=== PATIENT | female | born 1980 | race African-American/Black ===

== ENCOUNTER → 2020-05-15 | Outpatient (REF) | payer SELFPAY | LOC: M LAB REF 19:25 | PROVIDERS: ATTEND Physician Assistant | DX: R36.0 Urethral discharge without blood (principal) ==

== ENCOUNTER 2021-02-27 18:52 | Emergency (ER) | payer BC, MEDICAID ==
[~2021-02-27] VITALS: Ht 157.5 cm; Wt 72.3 kg
[2021-02-27] MEDS ORDERED: IRON65TA2 PO (19:10)
[2021-02-27] MEDS ORDERED: FLAG500T PO (23:02)
[2021-02-27 23:04] VITALS: BP 124/73
[2021-02-28 00:01] LABS: GC DNA AMPLIFICATION NEGATIVE (NEGATIVE)
== END 2021-02-27 23:09 | disposition home or self-care (01) ==
LOC: M ED 18:52
DX: N60.19 Diffuse cystic mastopathy of unspecified breast (principal); N76.0 Acute vaginitis; D50.9 Iron deficiency anemia, unspecified; Z88.1 Allergy status to other antibiotic agents; Z88.2 Allergy status to sulfonamides

== ENCOUNTER → 2021-05-28 | Outpatient (CLI) | payer BC, MEDICAID, OTHER ==
[~2021-05-28] MED LIST: FLAG500T PO; IRON65TA2 PO
--- NOTE | 2021-05-28 14:45 | REP ---
INDICATION: TB SCREENING. COMPARISON: None. TECHNIQUE: PA and lateral FINDINGS: The superior mediastinal structures are midline. The cardiac silhouette is unremarkable in size, shape, and position. The diaphragmatic surfaces of the lungs are regular, and the costophrenic angles are clear. The pulmonary case are clear. The imaged osseous structures are intact. IMPRESSION: There is no acute cardiopulmonary disease. <Electronically signed by Shahzad Shipley > 05/28/21 [id number]
== END ==
LOC: M RAD 13:18
PROVIDERS: ATTEND Family Medicine Addiction Medicine
DX: Z11.1 Encounter for screening for respiratory tuberculosis (principal)

== ENCOUNTER → 2021-07-03 | Outpatient (CLI) | payer BC ==
--- NOTE | 2021-07-03 09:59 | REPMRS ---
Patient History The patient states she had a clinical breast exam in June 2021. No known family history of cancer. Tomosynthesis is performed. [facility] breast density is b[facility] Indicated problem(s): left breast pain for 4 months. Diagnostic Patient states intermittent left breast pain for 4 months Diagnostic Bilateral Mammo: July 03, 2021 - Exam #: [id number] Bilateral CC and MLO view(s) were taken. Technologist: Nicole Hopson, Technologist No prior studies available for comparison. FINDINGS: The breast tissue is heterogeneously dense. This may lower the sensitivity of mammography. There is a moderate amount of residual fibroglandular tissue which is fairly symmetric. There is no dominant mass, areas of architectural distortion, or clustered microcalcification typical of malignancy. Assessment: BI-RADS/ACR category 1 mammogram. Negative Mammogram. Recommendation Routine screening mammogram in 1 year (for women over age 40). This mammogram was interpreted with the aid of an FDA-approved computer-aided dectection system. Electronically Signed By: Jj Molina MD 07/03/21 [id number]
== END ==
LOC: M WHC 08:48
PROVIDERS: ATTEND Pediatrics
DX: N64.4 Mastodynia (principal)
CPT/HCPCS: 77066; G0279

== ENCOUNTER → 2021-09-11 | Outpatient (CLI) | payer BC | LOC: M RAD 09:33 | PROVIDERS: ATTEND Pediatrics | DX: D25.9 Leiomyoma of uterus, unspecified (principal) ==